=== PATIENT | female | born 2000 | race American Indian/Alaskan Native ===

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

== ENCOUNTER 2021-03-14 14:10 | Emergency (ER) | payer OTHER, MEDICAID ==
[2021-03-14 17:26] VITALS: BP 144/95
[2021-03-14] MEDS ORDERED: KETOROLAC 30 MG/1 ML INJ IV ONE (20:33)
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
[2021-03-14 21:35] LABS: Alanine Aminotransferase 13 units/L (7-56); Albumin 3.8 g/dL (3.9-5); Blood Urea Nitrogen 8 mg/dL (7-17); Calcium 8.8 mg/dL (8.4-10.2); Hemolysis Index 7
[2021-03-14 21:36] LABS: BUN/Creatinine Ratio 13
[2021-03-14 21:45] LABS: Eosinophils # (Auto) 0.1 K/mm3 (0.0-0.4); Eosinophils % (Auto) 2.1 % (0.0-4.3); Hematocrit 38.6 % (30.3-42.9); Mean Corpuscular HGB Conc 31 % (30-34); Mean Corpuscular Volume 83 fl (79-97); Monocytes # (Auto) 0.4 K/mm3 (0.0-0.8); Monocytes % (Auto) 6.6 % (0.0-7.3); Platelet Count 326 K/mm3 (140-440); Red Blood Count 4.67 M/mm3 (3.65-5.03); Red Cell Distribution Width 15.4 % (13.2-15.2)
[2021-03-14 21:45] LABS: Bacteria,Urine 2+ /HPF (Negative); Bilirubin,Urine NEG (Negative); Blood,Urine NEG (Negative); Color,Urine Yellow (Yellow); Mucus,Urine 3+ /HPF; Urobilinogen,Urine < 2.0 mg/dL (<2.0)
[2021-03-14 21:46] LABS: Basophils % (Auto) 0.4 % (0.0-1.8); Lymphocytes # (Auto) 2.2 K/mm3 (1.2-5.4); Lymphocytes % (Auto) 37.6 % (13.4-35.0)
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
== END 2021-03-15 00:30 | disposition home or self-care (01) ==
LOC: ED 14:10
DX: R10.30 Lower abdominal pain, unspecified (principal); R07.89 Other chest pain; R82.81 Pyuria; J45.909 Unspecified asthma, uncomplicated; Z79.899 Other long term (current) drug therapy; V49.49XA Driver injured in collision with other motor vehicles in traffic accident, initial encounter; Y92.410 Unspecified street and highway as the place of occurrence of the external cause; Y93.89 Activity, other specified; Y99.8 Other external cause status
CPT/HCPCS: 36415; 71046; 74177; 80053; 81001; 83690; 84703; 85025; 87086; 96374; 99284; J1885; Q9967